=== PATIENT | female | born 1990 | race American Indian/Alaskan Native ===

== ENCOUNTER 2018-10-22 12:54 | Inpatient (IN) | payer SELFPAY ==
--- NOTE | 2018-10-22 14:03 | XRay Report ---
ROUTINE CHEST, TWO VIEWS: HISTORY: chest pain. The trachea, heart, mediastinal contour, lung fernández and bony thorax are unremarkable. No change since 05/29/18. IMPRESSION: Unremarkable chest x-ray.
[2018-10-22] MEDS ORDERED: ZOFRAN ODT PO ONE (14:29)
[2018-10-22] MEDS ORDERED: ZOFRAN ODT ONE (14:30)
[2018-10-22] MEDS ORDERED: ZOFRAN IV ONE (14:56)
[2018-10-22] MEDS ORDERED: REGLAN IV ONE (14:57)
[2018-10-22 15:00] LABS: Basophils # (Auto) 0.1 K/mm3 (0.0-0.1); Basophils % (Auto) 0.7 % (0.0-1.8); Eosinophils % (Auto) 0.3 % (0.0-4.3); Lymphocytes # (Auto) 0.9 K/mm3 (1.2-5.4); Lymphocytes % (Auto) 11.1 % (13.4-35.0); Mean Corpuscular HGB Conc 32 % (30-34); Mean Corpuscular Volume 72 fl (79-97); Monocytes # (Auto) 0.2 K/mm3 (0.0-0.8); Monocytes % (Auto) 2.3 % (0.0-7.3); Platelet Count 291 K/mm3 (140-440); Red Blood Count 4.34 M/mm3 (3.65-5.03); Red Cell Distribution Width 19.6 % (13.2-15.2)
[2018-10-22 15:20] LABS: Calcium 8.8 mg/dL (8.4-10.2)
[2018-10-22 15:24] LABS: Alanine Aminotransferase 12 units/L (7-56); Albumin 2.9 g/dL (3.9-5)
[2018-10-22 15:32] LABS: Bilirubin,Direct < 0.2 mg/dL (0-0.2)
[2018-10-22] MEDS ORDERED: HALDOL ONE (16:08)
[2018-10-22] MEDS ORDERED: HALDOL IV ONE (16:25)
--- NOTE | 2018-10-22 16:26 | Emergency Department Report ---
ED General Adult HPI - General Chief complaint: Chest Pain Stated complaint: CHEST PAIN/VOMITTING Time Seen by Provider: 10/22/18 13:41 Source: patient Mode of arrival: Ambulatory Limitations: No Limitations - History of Present Illness Initial comments: Patient presents to the emergency department with a chief complaint of chest pain that started last night. Patient describes the chest pain is intermittent in nature and substernal without radiation. Patient also complains of nausea and vomiting as well. Patient has a history of myocardial infarction as well as stent placements. Patient denies any abdominal pain, shortness breath, or headache. -: Sudden Location: chest Radiation: non-radiation Severity scale (0 -10): 5 Quality: other (pressure) Consistency: intermittent Improves with: none Worsens with: none Associated Symptoms: nausea/vomiting Treatments Prior to Arrival: none - Related Data Previous Rx's Medication Instructions Recorded Last Taken Type Aspirin EC 325 mg PO QDAY #30 tablet 10/23/18 Unknown Rx Clopidogrel [Plavix] 75 mg PO QDAY #30 tablet 10/23/18 Unknown Rx Famotidine [Pepcid] 20 mg PO BID #30 tablet 10/23/18 Unknown Rx Lisinopril [Zestril TAB] 5 mg PO QDAY #30 tablet 10/23/18 Unknown Rx Metoprolol [Lopressor TAB] 50 mg PO BID #60 tablet 10/23/18 Unknown Rx Pravastatin [Pravachol] 80 mg PO QHS #60 tablet 10/23/18 Unknown Rx Allergies Allergy/AdvReac Type Severity Reaction Status Date / Time shellfish derived Allergy Angioedema Verified 05/14/18 12:48 ED Review of Systems ROS: Stated complaint: CHEST PAIN/VOMITTING Other details as noted in HPI Comment: All other systems reviewed and negative Constitutional: denies: chills, fever Eyes: denies: eye pain, eye discharge, vision change ENT: denies: ear pain, throat pain Respiratory: denies: cough, shortness of breath, wheezing Cardiovascular: chest pain. denies: palpitations Endocrine: no symptoms reported Gastrointestinal: nausea, vomiting. denies: abdominal pain, diarrhea Genitourinary: denies: urgency, dysuria, discharge Musculoskeletal: denies: back pain, joint swelling, arthralgia Skin: denies: rash, lesions Neurological: denies: headache, weakness, paresthesias Psychiatric: denies: anxiety, depression Hematological/Lymphatic: denies: easy bleeding, easy bruising ED Past Medical Hx - Past Medical History Previous Medical History?: Yes Hx Heart Attack/AMI: Yes (May 2018) Hx Diabetes: Yes Hx Asthma: Yes Additional medical history: 3 stents May 2018 - Surgical History Past Surgical History?: Yes Additional Surgical History: cardiac stents - Social History Smoking Status: Current Every Day Smoker Substance Use Type: None - Medications Home Medications: Home Medications Medication Instructions Recorded Confirmed Last Taken Type Aspirin EC 325 mg PO QDAY #30 tablet 10/23/18 Unknown Rx Clopidogrel [Plavix] 75 mg PO QDAY #30 tablet 10/23/18 Unknown Rx Famotidine [Pepcid] 20 mg PO BID #30 tablet 10/23/18 Unknown Rx Lisinopril [Zestril TAB] 5 mg PO QDAY #30 tablet 10/23/18 Unknown Rx Metoprolol [Lopressor TAB] 50 mg PO BID #60 tablet 10/23/18 Unknown Rx Pravastatin [Pravachol] 80 mg PO QHS #60 tablet 10/23/18 Unknown Rx ED Physical Exam - General Limitations: No Limitations General appearance: alert, in no apparent distress - Head Head exam: Present: atraumatic, normocephalic - Eye Eye exam: Present: normal appearance - ENT ENT exam: Present: mucous membranes dry - Neck Neck exam: Present: normal inspection - Respiratory Respiratory exam: Present: normal lung sounds bilaterally. Absent: respiratory distress - Cardiovascular Cardiovascular Exam: Present: regular rate, normal rhythm. Absent: systolic murmur, diastolic murmur, rubs, gallop - GI/Abdominal GI/Abdominal exam: Present: soft, normal bowel sounds. Absent: distended, tenderness - Extremities Exam Extremities exam: Present: normal inspection - Back Exam Back exam: Present: normal inspection - Neurological Exam Neurological exam: Present: alert, oriented X3, CN II-XII intact. Absent: motor sensory deficit - Psychiatric Psychiatric exam: Present: normal affect, normal mood - Skin Skin exam: Present: warm, dry, intact, normal color. Absent: rash ED Course Vital Signs 10/22/18 10/22/18 10/22/18 13:14 16:51 18:49 Temperature 98.3 F Pulse Rate 93 H 73 Pulse Rate [ Apical] Pulse Rate [ From Monitor] Respiratory 20 20 20 Rate Blood Pressure 155/88 Blood Pressure 151/73 [Right] O2 Sat by Pulse 99 100 Oximetry 10/22/18 10/22/18 19:40 20:10 Temperature 98.3 F Pulse Rate 88 98 H Pulse Rate [ 81 Apical] Pulse Rate [ 81 From Monitor] Respiratory 18 Rate Blood Pressure 160/93 Blood Pressure [Right] O2 Sat by Pulse 100 100 Oximetry ED Medical Decision Making - Lab Data Result diagrams: 10/23/18 03:42 10/23/18 03:42 Lab Results 10/22/18 10/22/18 10/22/18 Range/Units 14:38 14:38 14:38 WBC 8.2 (4.5-11.0) K/mm3 RBC 4.34 (3.65-5.03) M/mm3 Hgb 10.0 L (10.1-14.3) gm/dl Hct 31.0 (30.3-42.9) % MCV 72 L (79-97) fl MCH 23 L (28-32) pg MCHC 32 (30-34) % RDW 19.6 H (13.2-15.2) % Plt Count 291 (140-440) K/mm3 Lymph % (Auto) 11.1 L (13.4-35.0) % [place] % (Auto) 2.3 (0.0-7.3) % Eos % (Auto) 0.3 (0.0-4.3) % Baso % (Auto) 0.7 (0.0-1.8) % Lymph # 0.9 L (1.2-5.4) K/mm3 [place] # 0.2 (0.0-0.8) K/mm3 Eos # 0.0 (0.0-0.4) K/mm3 Baso # 0.1 (0.0-0.1) K/mm3 Seg Neutrophils % 85.6 H (40.0-70.0) % Seg Neutrophils # 7.0 (1.8-7.7) K/mm3 Sodium 138 (137-145) mmol/L Potassium 4.1 (3.6-5.0) mmol/L Chloride 104.3 (98-107) mmol/L Carbon Dioxide 20 L (22-30) mmol/L Anion Gap 18 mmol/L BUN 13 (7-17) mg/dL Creatinine 1.3 H (0.7-1.2) mg/dL Estimated GFR 59 ml/min BUN/Creatinine Ratio 10 % Glucose 265 H (65-100) mg/dL Calcium 8.8 (8.4-10.2) mg/dL Total Bilirubin 0.30 (0.1-1.2) mg/dL Direct Bilirubin < 0.2 (0-0.2) mg/dL Indirect Bilirubin 0.1 mg/dL AST 13 (5-40) units/L ALT 12 (7-56) units/L Alkaline Phosphatase 57 (35-129) units/L Troponin T 0.025 (0.00-0.029) ng/mL NT-Pro-B Natriuret Pep 3308 H (0-450) pg/mL Total Protein 6.1 L (6.3-8.2) g/dL Albumin 2.9 L (3.9-5) g/dL Albumin/Globulin Ratio 0.9 % - EKG Data -: EKG Interpreted by Ut EKG shows normal: sinus rhythm Rate: normal - Radiology Data Radiology results: report reviewed - Medical Decision Making Patient has had a total 8 mg of Zofran, 10 mg Reglan, and IV Haldol for her nausea and vomiting Critical Care Time: Yes Critical care time in (mins) excluding proc time.: 35 Critical care attestation.: If time is entered above; I have spent that time in minutes in the direct care of this critically ill patient, excluding procedure time. ED Disposition Clinical Impression: Chest pain, Intractable nausea and vomiting, Elevated brain natriuretic peptide (BNP) level Disposition: OP ADMIT IP TO THIS HOSP Is pt being admited?: Yes Does the pt Need Aspirin: Yes Condition: Fair
[2018-10-22] MEDS ORDERED: NACL 0.9% 1000 ML 1,000 ML ONE (16:29)
[2018-10-22] MEDS ORDERED: LASIX IV ONE (16:37)
[2018-10-22] MEDS ORDERED: SODIUM CHLORIDE FLUSH SYRINGE 10 ML IV PRN ×2 (16:38→19:22)
[2018-10-22] MEDS ORDERED: ZOFRAN IV PRN (16:38)
[2018-10-22] MEDS ORDERED: MORPHINE IV PRN (16:38)
[2018-10-22] MEDS ORDERED: PERCOCET 5/325 PO PRN (16:38)
[2018-10-22] MEDS ORDERED: TYLENOL PO PRN (16:38)
--- NOTE | 2018-10-22 16:42 | History and Physical Report ---
History of Present Illness Chief complaint: My chest hurts History of present illness: 28 YO Female with DM complicated by Gastroparesis, Noncompliance, Systolic CHF, Nicotine Dependence, Asthma, ND, CAD S/P Stent placement, Obesity presents to ED for evaluation. Pt states that she has experienced pain in her chest over the past 1 day with worsening symptoms over the past 6 hours. Pt states that her pain is 5/10, substernal, intermittent, not worsened with exertion, not relieved with rest, associated with nausea and multiple episodes of vomiting. Pt acknowledges decreased exercise tolerance. Pt denies fever, chills, palpitations, syncope, unilateral leg swelling, calf pain, prolonged travel/immobility, headache, syncope, vertigo, BRBPR, skin rash or recent ill contacts. Pt transported to [facility] via private vehicle. Pt seen and evaluated in ED and found to have Angina, as well as symptoms consistent with CHF Decompensation, as well as elevated cardiac enzymes consistent with NSTEMI. Pt initiated on Heparin drip. Cardiology consulted in ED. Pt admitted to telemetry, and initiated on CHF protocol. Prior admission on 05/29/18 reviewed. All listed medication reconciled at time of admission. Past History Past Medical History: CAD, diabetes, heart failure Past Surgical History: Other (Stent placement) Social history: single. denies: smoking, alcohol abuse, prescription drug abuse Family history: diabetes, hypertension Medications and Allergies Allergies Allergy/AdvReac Type Severity Reaction Status Date / Time shellfish derived Allergy Angioedema Verified 05/14/18 12:48 Home Medications Medication Instructions Recorded Confirmed Last Taken Type No Known Home Medications [No 10/22/18 10/22/18 Unknown History Reported Home Medications] Review of Systems Constitutional: no weight loss, no weight gain, no fever, no chills Ears, nose, mouth and throat: no ear pain, no ear discharge, no tinnitis, no decreased hearing, no nose pain Breasts: no change in shape, no swelling, no mass Cardiovascular: chest pain, high blood pressure, decreased exercise tolerance, no orthopnea, no palpitations, no lightheadedness Respiratory: no cough, no cough with sputum, no excessive sputum, no hemoptysis Gastrointestinal: no abdominal pain, no nausea, no vomiting, no diarrhea, no constipation Genitourinary Female: no pelvic pain, no flank pain, no menorrhagia, no dysuria, no urinary frequency, no urgency Rectal: no pain, no incontinence, no bleeding Musculoskeletal: no neck stiffness, no neck pain, no shooting arm pain, no arm numbness/tingling Integumentary: no rash, no pruritis, no redness, no sores, no wounds Neurological: no transient paralysis, no paralysis, no weakness, no parathesias, no tingling Psychiatric: no anxiety, no memory loss, no change in sleep habits, no sleep disturbances, no insomnia, no hypersomnia Endocrine: no cold intolerance, no heat intolerance, no polyphagia, no excessive thirst, no polydipsia Hematologic/Lymphatic: no easy bruising, no easy bleeding, no lymphadenopathy, no lymphedema Allergic/Immunologic: no urticaria, no allergic rhinitis, no wheezing, no persistent infections, no anaphylaxis Exam - Constitutional Vitals: Temp Pulse Resp BP Pulse Ox 98.3 F 93 H 20 155/88 99 10/22/18 13:14 10/22/18 13:14 10/22/18 13:14 10/22/18 13:14 10/22/18 13:14 General appearance: Present: mild distress, obese - EENT Eyes: Present: PERRL ENT: hearing intact, clear oral mucosa - Neck Neck: Present: supple, normal ROM - Respiratory Respiratory effort: normal Respiratory: bilateral: CTA - Cardiovascular Heart Sounds: Present: S1 & S2. Absent: rub, click - Extremities Extremities: pulses symmetrical, No edema Peripheral Pulses: within normal limits - Abdominal General gastrointestinal: Present: soft, non-tender, non-distended, normal bowel sounds Female genitourinary: Present: normal - Integumentary Integumentary: Present: clear, warm, dry - Musculoskeletal Musculoskeletal: gait normal, strength equal bilaterally - Psychiatric Psychiatric: appropriate mood/affect, intact judgment & insight - Neurologic Neurologic: CNII-XII intact, moves all extremities Results - Labs CBC & Chem 7: 10/22/18 14:38 10/22/18 14:38 Labs: Abnormal lab results 10/22/18 10/22/18 10/22/18 Range/Units 14:38 14:38 14:38 Hgb 10.0 L (10.1-14.3) gm/dl MCV 72 L (79-97) fl MCH 23 L (28-32) pg RDW 19.6 H (13.2-15.2) % Lymph % (Auto) 11.1 L (13.4-35.0) % Lymph # 0.9 L (1.2-5.4) K/mm3 Seg Neutrophils % 85.6 H (40.0-70.0) % Carbon Dioxide 20 L (22-30) mmol/L Creatinine 1.3 H (0.7-1.2) mg/dL Glucose 265 H (65-100) mg/dL NT-Pro-B Natriuret Pep 3308 H (0-450) pg/mL Total Protein 6.1 L (6.3-8.2) g/dL Albumin 2.9 L (3.9-5) g/dL Assessment and Plan - Patient Problems (1) NSTEMI (non-ST elevated myocardial infarction) Current Visit: Yes Status: Acute Plan to address problem: Admit to telemetry, Heparin drip protocol, serial cardiac enzymes, ekg, cardiology consulted in ED, (2) CHF (congestive heart failure) Current Visit: Yes Status: Acute Qualifiers: Heart failure chronicity: acute on chronic Plan to address problem: Admit to telemetry, BNP, strict I/O, daily weight, monitor UOP q shift, chest x ray, supplemental oxygen, pulse oximetry, afterload reduction (3) ARF (acute renal failure) with tubular necrosis Current Visit: Yes Status: Acute Plan to address problem: IVF resuscitation, monitor uop q shift, repeat bmp in am, monitor serum creatnine. (4) CAD (coronary artery disease) Current Visit: Yes Status: Acute Qualifiers: Associated angina: with stable angina Plan to address problem: Lipid panel, statin therapy, risk factor reduction, low cholesterol diet. (5) Diabetes Current Visit: Yes Status: Acute Qualifiers: Diabetes mellitus complication status: with kidney complications Plan to address problem: ADA diet, insulin, accu check, hypoglycemia protocol (6) Acidosis Current Visit: Yes Status: Acute Plan to address problem: IVF resuscitation therapy, repeat bmp in am. (7) Gastroparesis due to DM Current Visit: Yes Status: Acute Plan to address problem: bowel rest, treat uncontrolled DM, frequent small meals, supportive care. Haldol/Zofran in ED, supportive care. (8) DVT prophylaxis Current Visit: Yes Status: Acute Plan to address problem: SCD to BLE while in bed, heparin drip protocol
[2018-10-22] MEDS ORDERED: NACL 0.9% 1000 ML 1,000 ML IV ONE (16:45)
[2018-10-22 17:25] LABS: Chol/HDL Ratio 5.91 %
[2018-10-22] MEDS ORDERED: APRESOLINE IV PRN (19:47)
[2018-10-22 20:30] LABS: Hematocrit 31.9 % (30.3-42.9); Hemoglobin 10.3 gm/dl (10.1-14.3)
[2018-10-22 20:34] LABS: INR 0.95 (0.87-1.13)
[2018-10-22 20:35] LABS: Partial Thromboplastin Time 28.8 Sec. (24.2-36.6)
[2018-10-22] MEDS: PEPCID PO SCH (21:16)
[2018-10-22] MEDS: LOPRESSOR PO SCH (21:16)
[2018-10-22] MEDS: HEPARIN/ 0.45% NACL-25,000 UNIT/500 ML 25,000 UNIT/500 ML BAG IV SCH (21:19)
[2018-10-22] MEDS ORDERED: PRAVACHOL PO SCH (22:00)
[2018-10-22] MEDS: SODIUM CHLORIDE FLUSH SYRINGE 10 ML IV SCH (22:30)
[2018-10-23 04:02] LABS: Basophils # (Auto) 0.1 K/mm3 (0.0-0.1); Basophils % (Auto) 1.2 % (0.0-1.8); Eosinophils % (Auto) 0.1 % (0.0-4.3); Hematocrit 29.2 % (30.3-42.9); Hemoglobin 9.4 gm/dl (10.1-14.3); Lymphocytes # (Auto) 1.4 K/mm3 (1.2-5.4); Lymphocytes % (Auto) 16.5 % (13.4-35.0); Mean Corpuscular HGB Conc 32 % (30-34); Mean Corpuscular Volume 71 fl (79-97); Monocytes # (Auto) 0.5 K/mm3 (0.0-0.8); Platelet Count 282 K/mm3 (140-440); Red Blood Count 4.13 M/mm3 (3.65-5.03); Red Cell Distribution Width 19.4 % (13.2-15.2)
[2018-10-23 04:12] LABS: Calcium 8.7 mg/dL (8.4-10.2)
[2018-10-23] MEDS: PEPCID PO SCH (09:16)
[2018-10-23] MEDS: SODIUM CHLORIDE FLUSH SYRINGE 10 ML IV SCH (09:23)
[2018-10-23] MEDS: LOPRESSOR PO SCH (09:31)
[2018-10-23] MEDS ORDERED: PLAVIX PO SCH (10:00)
[2018-10-23] MEDS ORDERED: HALFPRIN EC PO SCH (10:00)
[2018-10-23] MEDS ORDERED: LASIX IV SCH (10:00)
[2018-10-23] MEDS ORDERED: ECOTRIN PO SCH (10:00)
[2018-10-23] MEDS ORDERED: ZESTRIL PO SCH (10:00)
--- NOTE | 2018-10-23 10:10 | Consultation ---
History of Present Illness Consult date: 10/23/18 Consult reason: chest pain History of present illness: This is a 28 year old woman with coronary artery disease known compliance with medications and outpatient follow ups. She returns to the emergency room complaining of recurrent chest pain, nonexertional, started after vomiting on yesterday. The troponin level has trended upwards since admission. Creatinine of 1.3. She has not been compliant with plavix therapy however she reports she romaine es an aspirin daily. ECG is sinus rhythm with RBBB. Past History Past Medical History: CAD, diabetes, heart failure Past Surgical History: Other (Stent placement) Social history: single. denies: smoking, alcohol abuse, prescription drug abuse Family history: diabetes, hypertension Medications and Allergies Allergies Allergy/AdvReac Type Severity Reaction Status Date / Time shellfish derived Allergy Angioedema Verified 05/14/18 12:48 Home Medications Medication Instructions Recorded Confirmed Last Taken Type No Known Home Medications [No 10/22/18 10/22/18 Unknown History Reported Home Medications] Active Meds: Active Medications Acetaminophen (Tylenol) 650 mg PO Q4H PRN PRN Reason: Pain MILD(1-3)/Fever >100.5/ARAMBULA Aspirin (Ecotrin) 325 mg PO QDAY [facility] Last Admin: 10/23/18 09:15 Dose: 325 mg Documented by: Clopidogrel Bisulfate (Plavix) 75 mg PO QDAY [facility] Last Admin: 10/23/18 09:15 Dose: 75 mg Documented by: Famotidine (Pepcid) 20 mg PO BID [facility] Last Admin: 10/23/18 09:16 Dose: 20 mg Documented by: Furosemide (Lasix) 20 mg IV QDAY [facility] Last Admin: 10/23/18 09:16 Dose: 20 mg Documented by: Hydralazine HCl (Apresoline) 10 mg IV Q6HR PRN PRN Reason: Hypertension Heparin Sodium/Sodium Chloride (Heparin/ 0.45% Nacl-25,000 Unit/500 Ml) 25,000 unit in 500 mls @ 20 mls/hr IV TITRATE [facility]; Protocol Last Titration: 10/23/18 04:00 Dose: 1,100 units/hr, 22 mls/hr Documented by: Lisinopril (Zestril) 5 mg PO QDAY [facility] Last Admin: 10/23/18 09:22 Dose: 5 mg Documented by: Metoprolol Tartrate (Lopressor) 50 mg PO BID [facility] Last Admin: 10/23/18 09:31 Dose: 50 mg Documented by: Morphine Sulfate (Morphine) 2 mg IV Q4H PRN PRN Reason: Pain, Moderate (4-6) Last Admin: 10/22/18 22:29 Dose: 2 mg Documented by: Ondansetron HCl (Zofran) 4 mg IV Q8H PRN PRN Reason: Nausea And Vomiting Oxycodone/Acetaminophen (Percocet 5/325) 1 tab PO Q6H PRN PRN Reason: Pain, Moderate (4-6) Pravastatin Sodium (Pravachol) 80 mg PO QHS [facility] Last Admin: 10/22/18 22:30 Dose: 80 mg Documented by: Sodium Chloride (Sodium Chloride Flush Syringe 10 Ml) 10 ml IV BID [facility] Last Admin: 10/23/18 09:23 Dose: 10 ml Documented by: Sodium Chloride (Sodium Chloride Flush Syringe 10 Ml) 10 ml IV PRN PRN PRN Reason: LINE FLUSH Sodium Chloride (Sodium Chloride Flush Syringe 10 Ml) 10 ml IV PRN PRN PRN Reason: LINE FLUSH Physical Examination Vital Signs Temp Pulse Resp BP Pulse Ox 98.3 F 93 H 20 155/88 99 10/22/18 13:14 10/22/18 13:14 10/22/18 13:14 10/22/18 13:14 10/22/18 13:14 General appearance: no acute distress HEENT: Positive: PERRL Neck: Positive: trachea midline Cardiac: Positive: Reg Rate and Rhythm Lungs: Positive: Decreased Breath Sounds Neuro: Positive: Grossly Intact Extremities: Absent: edema Results 10/23/18 03:42 10/23/18 03:42 Cardiac Enzymes 10/22/18 Range/Units 14:38 AST 13 (5-40) units/L Coagulation 10/22/18 Range/Units 19:58 PT 13.3 (12.2-14.9) Sec. INR 0.95 (0.87-1.13) APTT 28.8 (24.2-36.6) Sec. Lipids 10/22/18 Range/Units 16:16 Triglycerides 156 H (2-149) mg/dL Cholesterol 349 H (50-199) mg/dL HDL Cholesterol 59 (40-59) mg/dL Cholesterol/HDL Ratio 5.91 % CBC 05/15/19 05/15/19 05/16/19 Range/Units 14:38 19:58 03:42 WBC 8.2 8.6 (4.5-11.0) K/mm3 RBC 4.34 4.13 (3.65-5.03) M/mm3 Hgb 10.0 L 10.3 9.4 L (10.1-14.3) gm/dl Hct 31.0 31.9 29.2 L (30.3-42.9) % Plt Count 291 278 282 (140-440) K/mm3 Lymph # 0.9 L 1.4 (1.2-5.4) K/mm3 [place] # 0.2 0.5 (0.0-0.8) K/mm3 Eos # 0.0 0.0 (0.0-0.4) K/mm3 Baso # 0.1 0.1 (0.0-0.1) K/mm3 Comprehensive Metabolic Panel 10/22/18 10/22/18 10/23/18 Range/Units 14:38 14:38 03:42 Sodium 138 139 (137-145) mmol/L Potassium 4.1 4.2 (3.6-5.0) mmol/L Chloride 104.3 105.9 (98-107) mmol/L Carbon Dioxide 20 L 23 (22-30) mmol/L BUN 13 13 (7-17) mg/dL Creatinine 1.3 H 1.3 H (0.7-1.2) mg/dL Glucose 265 H 175 H (65-100) mg/dL Calcium 8.8 8.7 (8.4-10.2) mg/dL Direct Bilirubin < 0.2 (0-0.2) mg/dL Indirect Bilirubin 0.1 mg/dL AST 13 (5-40) units/L ALT 12 (7-56) units/L Alkaline Phosphatase 57 (35-129) units/L Total Protein 6.1 L (6.3-8.2) g/dL Albumin 2.9 L (3.9-5) g/dL Assessment and Plan Chest pain Elevated troponin Hx of CAD Diabetes Hypertension Acute renal failure Hyperlipidemia Echocardiogram done 05/2018: EF 45-50%.
[2018-10-23] MEDS: HEPARIN/ 0.45% NACL-25,000 UNIT/500 ML 25,000 UNIT/500 ML BAG IV SCH (12:40)
[2018-10-23] MEDS ORDERED: PLAVIX PO ONE (14:30)
[2018-10-23 15:42] VITALS: BP 99/49
--- NOTE | 2018-10-23 15:43 | Discharge Summary ---
Providers - Providers Date of Admission: 10/22/18 16:38 Date of discharge: 10/23/18 Attending physician: TONA VELEZ 10/22/18 16:38 Consult to Physician [CONS] Routine Comment: Consulting Provider: SANCHO GARCIA Physician Instructions: Reason For Exam: angina [facility] Condition: Fair Pertinent studies: Chest x-ray: No infiltrates Hospital course: 28-year-old woman with multivessel coronary artery disease but refused any intervention in the past and left AMA returns to the hospital now with chest pain. The EKG is a sinus rhythm with right bundle branch block, old anterior myocardial infarction, no acute ST or T-wave changes. The isoenzymes troponin levels where mildly elevated at 0.25-0.34. patient admits that she has been noncompliant with Plavix therapy for over 2 weeks, reporting that it was too expensive at $16 per month. Patient was admitted with an STEMI protocol and placed on heparin drip, cardiology was consulted. Cardiology recommend at this time that she stays for further cardiac evaluation either with a stress test or preferably with diagnostic coronary angiography given the elevation of the troponin levels and her noncompliance with dual oral antiplatelet therapy. The patient however states that she feels fine, has no further chest pain, and wants to go home on medical therapy. She promises to be more compliant with Plavix in the future. Patient declines further cardiac evaluation. Cardiology recomme nded to discharge on guideline medical therapy including dual oral antiplatelet therapy with aspirin and Plavix. Discharge diagnosis: Chest pain likely due to coronary artery disease Elevated troponin/NSTEMI likely type I - Patient refused any intervention including cardiac/stress stress - Patient preferred to go with medical management Hx of CAD Diabetes complicated with gastroparesis Hypertension Possible CKD likely stage I Hyperlipidemia Obesity, likely due to excess calorie Medical noncompliance Echocardiogram done 05/2018: EF 45-50%. Hospital physical: GENERAL: well-developed and well-nourished -English female lying on bed appeared to be in no discomfort. HEENT: Normocephalic. Atraumatic. No conjunctival congestion or icterus. Patient has moist mucous membranes. NECK: Supple. Trachea midline. CHEST/LUNGS: Clear to auscultated bilaterally, breathing nonlabored. No wheezes crackles or rhonchi. HEART/CARDIOVASCULAR: Regular in rate and rhythm. S1 and S2 positive. ABDOMEN: Abdomen is soft, nontender. Patient has normal bowel sounds. SKIN: There is no rash. Warm and dry. NEURO: No focal motor deficit. Follows command. MUSCULOSKELETAL: No joint effusion or tenderness. EXTRIMITY: No edema, no cyanosis or clubbing. PSYCH: Cooperative. Disposition: DC-01 TO HOME OR SELFCARE Time spent for discharge: 35 minutes Core Measure Documentation - Palliative Care Palliative Care/ Comfort Measures: Not Applicable - Core Measures Any of the following diagnoses?: none Exam - Constitutional Vitals: Temp Pulse Resp BP Pulse Ox 98.3 F 66 18 129/74 98 10/23/18 12:30 10/23/18 12:30 10/23/18 12:30 10/23/18 12:30 10/23/18 12:30 Plan Activity: advance as tolerated Weight Bearing Status: Non-Weight Bearing Diet: low fat, low salt, diabetic Special Instructions: record daily BP diary, record blood sugar diary [facility] [Primary Care Provider] - 3-5 Days SANCHO GARCIA MD [Staff Physician] - 7 Days Prescriptions: Pravastatin [Pravachol] 80 mg PO QHS #60 tablet Aspirin EC 325 mg PO QDAY #30 tablet Metoprolol [Lopressor TAB] 50 mg PO BID #60 tablet Famotidine [Pepcid] 20 mg PO BID #30 tablet Clopidogrel [Plavix] 75 mg PO QDAY #30 tablet Lisinopril [Zestril TAB] 5 mg PO QDAY #30 tablet
== END 2018-10-23 19:19 | disposition home or self-care (01) | DRG 280 ==
LOC: ED 12:54 → 4A 16:38
PROVIDERS: ADMIT Internal Medicine; ATTEND Internal Medicine
DX: I21.4 Non-ST elevation (NSTEMI) myocardial infarction (principal); N17.0 Acute kidney failure with tubular necrosis; I50.23 Acute on chronic systolic (congestive) heart failure; I13.0 Hypertensive heart and chronic kidney disease with heart failure and stage 1 through stage 4 chronic kidney disease, or unspecified chronic kidney disease; E87.2 Acidosis; I25.118 Atherosclerotic heart disease of native coronary artery with other forms of angina pectoris; I45.10 Unspecified right bundle-branch block; K31.84 Gastroparesis; E11.43 Type 2 diabetes mellitus with diabetic autonomic (poly)neuropathy; N18.9 Chronic kidney disease, unspecified; F17.200 Nicotine dependence, unspecified, uncomplicated; E66.9 Obesity, unspecified; E11.22 Type 2 diabetes mellitus with diabetic chronic kidney disease; E78.5 Hyperlipidemia, unspecified; Z91.14 Patient's other noncompliance with medication regimen; Z95.5 Presence of coronary angioplasty implant and graft; Z82.49 Family history of ischemic heart disease and other diseases of the circulatory system; Z83.3 Family history of diabetes mellitus; Z91.013 Allergy to seafood; Z68.31 Body mass index [BMI] 31.0-31.9, adult
CPT/HCPCS: 36415; 71046; 80048; 80061; 80076; 82962; 83880; 84484; 85014; 85018; 85025; 85049; 85520; 85610; 85730; 93005; 93010; 96374; 96375; 99291; 99406; G0378; A9270-GY; J1630; J1644; J1940; J2270; J2405; J2765; J7030; Q0162

== ENCOUNTER 2019-05-15 11:12 | Emergency (ER) | payer SELFPAY ==
[2019-05-15 11:25] VITALS: BP 148/81
--- NOTE | 2019-05-15 11:27 | Event Note ---
ED Screening Note ED Screening Note: lower back discomfort that began last night nausea "concerned her blood sugar is high" hx of DM, is supposed to take metformin for her DM states has not taken in two weeks states she goes to [facility], has not called them no fever BG is 235 This initial assessment/diagnostic orders/clinical plan/treatment(s) is/are subject to change based on patients health status, clinical progression and re- assessment by fellow clinical providers in the ED. Further treatment and workup at subsequent clinical providers discretion. Patient/guardian urged not to elope from the ED as their condition may be serious if not clinically assessed and managed.
--- NOTE | 2019-05-15 13:40 | Emergency Department Report ---
ED General Adult HPI - General Chief complaint: Hyperglycemia Stated complaint: BLOOD SUGAR CHECK Time Seen by Provider: 05/15/19 11:24 Source: patient Mode of arrival: Ambulatory Limitations: No Limitations - History of Present Illness Initial comments: 29-year-old [place] female with a past medical history of COPD, CAD, myocardial infarction, diabetes mellitus, hypertension presents emergency department seeking a prescription for her diabetic medications and a blood sugar check. She is unsure of her last hemoglobin A1c reports she has not been very very compliant last few months -: Gradual, month(s) Radiation: non-radiation Severity scale (0 -10): 0 Worsens with: none Associated Symptoms: denies other symptoms (no symptoms at current did have a couple episodes of lightheadedness and headaches a couple days ago) Treatments Prior to Arrival: none - Related Data Previous Rx's Medication Instructions Recorded Last Taken Type Aspirin EC 325 mg PO QDAY #30 tablet 10/23/18 Unknown Rx Famotidine [Pepcid] 20 mg PO BID #30 tablet 10/23/18 Unknown Rx Pravastatin [Pravachol] 80 mg PO QHS #60 tablet 10/23/18 Unknown Rx Clopidogrel [Plavix] 75 mg PO QDAY #30 tablet 05/15/19 Unknown Rx Lisinopril [Zestril TAB] 5 mg PO QDAY #30 tablet 05/15/19 Unknown Rx Metoprolol [Lopressor TAB] 50 mg PO BID #60 tablet 05/15/19 Unknown Rx metFORMIN [Glucophage] 500 mg PO BID #60 tablet 05/15/19 Unknown Rx Allergies Allergy/AdvReac Type Severity Reaction Status Date / Time shellfish derived Allergy Angioedema Verified 05/15/19 11:13 ED Review of Systems ROS: Stated complaint: BLOOD SUGAR CHECK Other details as noted in HPI Comment: All other systems reviewed and negative ED Past Medical Hx - Past Medical History Hx Hypertension: Yes Hx Heart Attack/AMI: Yes (May 2018) Hx Congestive Heart Failure: Yes Hx Diabetes: Yes Hx Asthma: Yes Hx COPD: No Additional medical history: 3 stents May 2018 - Surgical History Hx Coronary Stent: Yes (2017) Additional Surgical History: cardiac stents - Social History Smoking Status: Current Every Day Smoker Substance Use Type: None - Medications Home Medications: Home Medications Medication Instructions Recorded Confirmed Last Taken Type Aspirin EC 325 mg PO QDAY #30 tablet 10/23/18 Unknown Rx Famotidine [Pepcid] 20 mg PO BID #30 tablet 10/23/18 Unknown Rx Pravastatin [Pravachol] 80 mg PO QHS #60 tablet 10/23/18 Unknown Rx Clopidogrel [Plavix] 75 mg PO QDAY #30 tablet 05/15/19 Unknown Rx Lisinopril [Zestril TAB] 5 mg PO QDAY #30 tablet 05/15/19 Unknown Rx Metoprolol [Lopressor TAB] 50 mg PO BID #60 tablet 05/15/19 Unknown Rx metFORMIN [Glucophage] 500 mg PO BID #60 tablet 05/15/19 Unknown Rx ED Physical Exam - General Limitations: No Limitations General appearance: alert, in no apparent distress - Head Head exam: Present: atraumatic, normocephalic - Eye Eye exam: Present: normal appearance. Absent: nystagmus, periorbital swelling, periorbital tenderness - Expanded Eye Exam Expanded Eyelids: Normal Inspection: Right Pupils: Regular, Round: Left, Reactive: Left Sclera/Conjunctival: Normal Inspection: Left (scarring and widening to the right cornea involving the pupil exam at Iriis region) - ENT ENT exam: Present: normal exam, normal orophraynx, mucous membranes moist - Neck Neck exam: Present: normal inspection - Respiratory Respiratory exam: Present: normal lung sounds bilaterally. Absent: respiratory distress - Cardiovascular Cardiovascular Exam: Present: regular rate, normal rhythm. Absent: systolic murmur, diastolic murmur, rubs, gallop - GI/Abdominal GI/Abdominal exam: Present: soft, normal bowel sounds. Absent: distended, tenderness, guarding, rebound, rigid - Extremities Exam Extremities exam: Present: normal inspection - Back Exam Back exam: Present: normal inspection - Neurological Exam Neurological exam: Present: alert, oriented X3 - Psychiatric Psychiatric exam: Present: normal affect, normal mood - Skin Skin exam: Present: warm, dry, intact, normal color. Absent: rash ED Course Vital Signs 05/15/19 11:24 Temperature 98.4 F Pulse Rate 74 Respiratory 16 Rate Blood Pressure 148/81 O2 Sat by Pulse 100 Oximetry ED Medical Decision Making - Medical Decision Making Ms. Man presentation most consistent with hyperglycemic state without evidence of DKA. She has a long known history of diabetes which has been treated off and on for the last 6 months with utilization of metformin but she reports not taking the medication over the last 3-4 months due to her feeling that she was doing much better she had a solution of her symptoms. Given Exam, History, and Workup I have low suspicion for an emergent precipitating factor of this hyperglycemic state such as atypical AL, acute abdomen, or other serious bacterial illness. Patient is Type 2 Diabetic with changes in medication regimen/adherence due to the lack of compliance. He had a very long discussion about the need for medication compliance and diabetic education.. Workup: Current glucose is 235 and she is asymptomatic Findings: A Interventions: Restart medication regimen she states she is able to follow up with her primary care provider Re-evaluation: Patients serum glucose downtrended significantly with stable electrolytes and no anion gap at this time. Disposition: Discharge home with appropriate oral medication regimen and prompt PCP follow up instructions. Critical care attestation.: If time is entered above; I have spent that time in minutes in the direct care of this critically ill patient, excluding procedure time. ED Disposition Clinical Impression: Diabetes mellitus with hyperglycemia, Noncompliance with medication regimen, Uncontrolled diabetes mellitus Disposition: - TO HOME OR SELFCARE Is pt being admited?: No Does the pt Need Aspirin: No Condition: Stable Instructions: Diabetes Mellitus Type 2 in Adults (ED) Prescriptions: metFORMIN [Glucophage] 500 mg PO BID #60 tablet Metoprolol [Lopressor TAB] 50 mg PO BID #60 tablet Clopidogrel [Plavix] 75 mg PO QDAY #30 tablet Lisinopril [Zestril TAB] 5 mg PO QDAY #30 tablet Referrals: [facility] [Provider Group] - 3-5 Days GAYLE PENA MD [Staff Physician] - 3-5 Days MIESHA FLOWERS MD [Primary Care Provider] - 3-5 Days
== END 2019-05-15 13:35 | disposition home or self-care (01) ==
LOC: ED 11:12
DX: E11.65 Type 2 diabetes mellitus with hyperglycemia (principal); I25.2 Old myocardial infarction; I11.0 Hypertensive heart disease with heart failure; I50.9 Heart failure, unspecified; J45.909 Unspecified asthma, uncomplicated; F17.200 Nicotine dependence, unspecified, uncomplicated; Z95.5 Presence of coronary angioplasty implant and graft; Z79.899 Other long term (current) drug therapy; Z91.14 Patient's other noncompliance with medication regimen; Z91.013 Allergy to seafood
CPT/HCPCS: 82962

== ENCOUNTER 2021-08-28 00:50 | Emergency (ER) | payer SELFPAY ==
--- NOTE | 2021-08-28 02:14 | Emergency Department Report ---
ED CPR HPI - General Stated Complaint: CARDIAC ARREST Time Seen by Provider: 08/28/21 01:12 Source: family, EMS, old records reviewed Mode of arrival: Stretcher Limitations: Altered Mental Status, Physical Limitation - History of Present Illness Initial Comments: 31-year-old female the past medical history of CAD with multiple stents, diabetes, gastroparesis, hypertension, CKD, hyperlipidemia, obesity, and medical noncompliance (as per previous record) presents to the hospital and cardiopulmonary arrest. Patient lives with her boyfriend states she complained of abdominal and lower extremity swelling and he urged her to come to the hospital. He also states patient was not on diabetes medication at this time. He last spoke to her at 9:30 PM. Patient was found unresponsive on the floor by her boyfriend and he initiated bystander CPR. EMS was notified at 12:06 AM. EMS reports that patient was in asystole upon their arrival to the scene. He was treated with epinephrine x3, Accu-Chek in the 400s, and patient remained in asystole despite meds and Markie airway placement. Patient in asystole upon ED arrival at 12:49 AM. Resuscitation efforts continued - Related Data Previous Rx's Medication Instructions Recorded Last Taken Type Aspirin EC [Ecotrin] 325 mg PO QDAY #30 tablet 10/23/18 Unknown Rx Famotidine [Pepcid] 20 mg PO BID #30 tablet 10/23/18 Unknown Rx Pravastatin [Pravachol] 80 mg PO QHS #60 tablet 10/23/18 Unknown Rx Clopidogrel [Plavix] 75 mg PO QDAY #30 tablet 05/15/19 Unknown Rx Metoprolol [Lopressor TAB] 50 mg PO BID #60 tablet 05/15/19 Unknown Rx lisinopriL [Zestril TAB] 5 mg PO QDAY #30 tablet 05/15/19 Unknown Rx metFORMIN [Glucophage] 500 mg PO BID #60 tablet 05/15/19 Unknown Rx Allergies Allergy/AdvReac Type Severity Reaction Status Date / Time shellfish derived Allergy Angioedema Verified 05/15/19 11:13 ED Review of Systems ROS: Stated complaint: CARDIAC ARREST Other details as noted in HPI Comment: Unobtainable due to pts medical conditions ED Past Medical Hx - Past Medical History Hx Hypertension: Yes Hx Heart Attack/AMI: Yes (May 2018) Hx Congestive Heart Failure: Yes Hx Diabetes: Yes Hx Asthma: Yes Hx COPD: No Additional medical history: 3 stents May 2018 - Surgical History Hx Coronary Stent: Yes (X3 2018) Additional Surgical History: cardiac stents - Social History Smoking Status: Current Every Day Smoker Substance Use Type: None - Medications Home Medications: Home Medications Medication Instructions Recorded Confirmed Last Taken Type Aspirin EC [Ecotrin] 325 mg PO QDAY #30 tablet 10/23/18 Unknown Rx Famotidine [Pepcid] 20 mg PO BID #30 tablet 10/23/18 Unknown Rx Pravastatin [Pravachol] 80 mg PO QHS #60 tablet 10/23/18 Unknown Rx Clopidogrel [Plavix] 75 mg PO QDAY #30 tablet 05/15/19 Unknown Rx Metoprolol [Lopressor TAB] 50 mg PO BID #60 tablet 05/15/19 Unknown Rx lisinopriL [Zestril TAB] 5 mg PO QDAY #30 tablet 05/15/19 Unknown Rx metFORMIN [Glucophage] 500 mg PO BID #60 tablet 05/15/19 Unknown Rx ED Physical Exam - Other Other exam information: General: Unresponsive Head: Atraumatic Eyes: Not react ENT: Orally intubated Markie airway Neck: Normal appearance Chest: Breath sounds with bagging, apnea CV: Pulseless Abdomen: Soft Extremity: Normal inspection Neuro: GCS equals 3 Psych: Unresponsive Skin: Warm to touch ED Medical Decision Making - Medical Decision Making Resuscitation efforts continued upon patient arrival. She received 1 dose of epinephrine, sodium bicarb, and calcium chloride remained in asystole despite resuscitation efforts. Time of 12:54 AM. Patient's mother and boyfriend present in the ED and informed of patient's Critical Care Time: Yes Critical care time in (mins) excluding proc time.: 15 Critical care attestation.: If time is entered above; I have spent that time in minutes in the direct care of this critically ill patient, excluding procedure time. ED Disposition Clinical Impression: Cardiopulmonary arrest, Hyperglycemia Disposition: 20 Is pt being admited?: No Condition: Stable Time of Disposition: 02:40
[2021-08-28] MEDS ORDERED: EPINEPHrine 1 MG/10 ML SYRINGE ONE (21:20)
[2021-08-28] MEDS ORDERED: SODIUM BICARB 8.4% 50 MEQ/50 ML SYRINGE IV ONE (21:20)
[2021-08-28] MEDS ORDERED: CALCIUM CHLORIDE 1,000 MG/10 ML SYRINGE IV ONE (21:20)
== END 2021-08-28 05:44 ==
LOC: ED 00:50
DX: I46.9 Cardiac arrest, cause unspecified (principal); E11.65 Type 2 diabetes mellitus with hyperglycemia; I11.0 Hypertensive heart disease with heart failure; I50.9 Heart failure, unspecified; J44.9 Chronic obstructive pulmonary disease, unspecified; F17.200 Nicotine dependence, unspecified, uncomplicated; Z91.013 Allergy to seafood; Z79.82 Long term (current) use of aspirin; Z79.899 Other long term (current) drug therapy
CPT/HCPCS: 92950; 99285; J0171; J3490